=== PATIENT | male | born 1955 | race Caucasian/White ===

== ENCOUNTER → 2016-10-23 | Outpatient (CLI) | payer OTHER ==
--- NOTE | 2016-10-23 15:15 | US ---
EXAMINATION TYPE: US abdomen limited DATE OF EXAM: 10/23/2016 COMPARISON: NONE CLINICAL HISTORY: K45.8 abdominal hernia. Abd distention seen within RLQ when patient was looking in the mirror. No injury, does not enlarge in size, not painful. Assess for hernia at location of: RLQ No obvious defect seen within abdominal sheath to indicate a hernia with or without valsalva. IMPRESSION: NO EVIDENCE OF ABDOMINAL VENTRAL HERNIA. Real-time scanning was performed by the forge heater utilizing Valsalva and additional dynamic maneuve rs to assess for hernia. Images of the contralateral side were also acquired for direct comparison.
== END | disposition home or self-care (01) ==
LOC: RADUSWWP 13:50
PROVIDERS: ATTEND Family Medicine
DX: K46.9 Unspecified abdominal hernia without obstruction or gangrene (principal)
CPT/HCPCS: 76705

== ENCOUNTER 2022-08-09 09:28 | Emergency (ER) | payer OTHER ==
[2022-08-09 09:37] VITALS: RESP 20
--- NOTE | 2022-08-09 09:46 | ED ---
General Adult HPI - General Chief complaint: Upper Respiratory Infection Stated complaint: Chest Congestion Time Seen by Provider: 08/09/22 09:45 Source: patient Mode of arrival: ambulatory Limitations: no limitations - History of Present Illness Initial comments: 66-year-old male with past history of hypertension, hyperlipidemia who presents emergency department with upper respiratory symptoms. States that for the past 3 days he has had increased cough with clear sputum production. His grandson and multiple coworkers are sick. He admits to chills without recorded fevers. He was up all night last night coughing which caused him to have severe anxiety. He does not have any chest pain. Admits nausea without vomiting. Had some diarrhea yesterday. He is using his grandson's nebulizer without any improvement in his symptoms. Denies smoking history. No calf pain or swelling. No cardiac history. No other alleviating, precipitating or modifying factors - Related Data Previous Rx's Medication Instructions Recorded ALPRAZolam [Xanax] 0.25 mg PO Q8HR PRN 3 Days #9 tab 08/09/22 Albuterol Inhaler [Ventolin Hfa 1 - 2 puff INHALATION Q4H #1 each 08/09/22 Inhaler] Azithromycin [Zithromax Z Pack] 1 tab PO DIRECTED #6 tab 08/09/22 predniSONE [Deltasone] 20 mg PO BID #10 tab 08/09/22 Allergies Allergy/AdvReac Type Severity Reaction Status Date / Time No Known Allergies Allergy Verified 08/09/22 09:37 Review of Systems ROS Statement: Those systems with pertinent positive or pertinent negative responses have been documented in the HPI. ROS Other: All systems not noted in ROS Statement are negative. Past Medical History Past Medical History: Hyperlipidemia, Hypertension, Osteoarthritis (OA) Past Surgical History: Orthopedic Surgery Past Psychological History: No Psychological Hx Reported Smoking Status: Former smoker Past Alcohol Use History: None Reported Past Drug Use History: None Reported General Exam Limitations: no limitations General appearance: alert, in no apparent distress Head exam: Present: atraumatic, normocephalic, normal inspection Eye exam: Present: normal appearance, PERRL, EOMI. Absent: scleral icterus, conjunctival injection, periorbital swelling ENT exam: Present: normal exam, mucous membranes moist Neck exam: Present: normal inspection. Absent: tenderness, meningismus, lymphadenopathy Respiratory exam: Present: wheezes, decreased breath sounds. Absent: respiratory distress, rales, rhonchi, stridor Cardiovascular Exam: Present: regular rate, normal rhythm, normal heart sounds. Absent: systolic murmur, diastolic murmur, rubs, gallop, clicks GI/Abdominal exam: Present: soft, normal bowel sounds. Absent: distended, tenderness, guarding, rebound, rigid Extremities exam: Present: normal inspection, full ROM, normal capillary refill. Absent: tenderness, pedal edema, joint swelling, calf tenderness Back exam: Present: normal inspection Neurological exam: Present: alert, oriented X3, CN II-XII intact Psychiatric exam: Present: normal affect, normal mood Skin exam: Present: warm, dry, intact, normal color. Absent: rash Course Vital Signs 08/09/22 08/09/22 08/09/22 09:31 12:15 12:22 Temperature 99.2 F Pulse Rate 99 72 72 Respiratory 20 Rate Blood Pressure 164/92 O2 Sat by Pulse 97 Oximetry 08/09/22 12:34 Temperature 98.8 F Pulse Rate 70 Respiratory 20 Rate Blood Pressure 158/80 O2 Sat by Pulse 97 Oximetry Medical Decision Making - Medical Decision Making Was pt. sent in by a medical professional or institution (, PA, ICE PLANT OPERATOR, urgent care, hospital, or assisted...) When possible be specific @ -No Did you speak to anyone other than the patient for history (EMS, parent, family, police, friend...)? What history was obtained from this source @ -No Did you review nursing and triage notes (agree or disagree)? Why? @ -I reviewed and agree with nursing and triage notes Were old charts reviewed (outside hosp., previous admission, EMS record, old EKG, old radiological studies, urgent care reports/EKG's, assisted records)? Report findings @ -No previous records reviewed Differential Diagnosis (chest pain, altered mental status, abdominal pain women, abdominal pain men, vaginal bleeding, weakness, fever, dyspnea, syncope, headache, dizziness, GI bleed, back pain, seizure, CVA, palpatations, mental health, musculoskeletal)? @ -asthma exacerbation, copd, pulmonary fibrosis, uri EKG interpreted by me (3pts min.). @ -No X-rays interpreted by me (1pt min.). @ -Yes CT interpreted by me (1pt min.). @ -None done U/S interpreted by me (1pt. min.). @ -None done What testing was considered but not performed or refused? (CT, X-rays, U/S, labs)? Why? @ -None What meds were considered but not given or refused? Why? @ -None Did you discuss the management of the patient with other professionals (professionals i.e. Dr., PA, ICE PLANT OPERATOR, lab, RT, psych nurse, social media community manager, real estate lawyer, teacher, wildlife conservation officer, patient case coordinator)? Give summary @ -No Was smoking cessation discussed for >3mins.? @ -No Was critical care preformed (if so, how long)? @ -No Were there social determinants of health that impacted care today? How? (Homelessness, low income, unemployed, alcoholism, drug addiction, t ransportation, low edu. Level, literacy, decrease access to med. care, long term, rehab)? @ -No Was there de-escalation of care discussed even if they declined (Discuss DNR or withdrawal of care, Hospice)? DNR status @ -No What co-morbidities impacted this encounter? (DM, HTN, Smoking, COPD, CAD, Cancer, CVA, ARF, Chemo, Hep., AIDS, mental health diagnosis, sleep apnea, morbid obesity)? @ -None Was patient admitted / discharged? Hospital course, mention meds given and route, prescriptions, significant lab abnormalities, going to OR and other pertinent info. @ -On arrival he is placed into room 3. A thorough history and physical exam was performed. Patient is diffusely wheezy. He is swabbed for influenza, cold and RSV all of which are negative. Chest x-ray demonstrates no acute process. Results are discussed patient. He is eager to leave. I do discuss performing a breathing treatment for which she is agreeable. He was also given 60 mg prednisone. He is discharged home on azithromycin, prednisone and an inhaler. He is requesting something for anxiety. I did recommend cold and cough syrup however patient refused and wants something for anxiety. I discussed very limited use of the medication with him. He is given a few tablets however discuss that if he is having worsening breathing he needs to be evaluated instead of taking the medication. Patient understood this. He is felt as doctor in 2-4 days however needs to return in 48 hours of his symptoms are improved. Patient's was discharged in stable condition Undiagnosed new problem with uncertain prognosis? @ -Yes Drug Therapy requiring intensive monitoring for toxicity (Heparin, Nitro, Insulin, Cardizem)? @ -No Were any procedures done? @ -No Diagnosis/symptom? @ -acute resp insuff, acute bronchospasm Acute, or Chronic, or Acute on Chronic? @ -acute Uncomplicated (without systemic symptoms) or Complicated (systemic symptoms)? @ -complicated Side effects of treatment? @ -No Exacerbation, Progression, or Severe Exacerbation? @ -No Poses a threat to life or bodily function? How? (Chest pain, [place], [place], pneumonia, PE, COPD, DKA, ARF, appy, cholecystitis, CVA, Diverticulitis, Homicidal, Suicidal, threat to staff... and all critical care pts) @ -yes - Lab Data Lab Results 08/09/22 Range/Units 10:32 Influenza Type A (PCR) Not Detected (Not Detectd) Influenza Type B (PCR) Not Detected (Not Detectd) RSV (PCR) Not Detected (Not Detectd) SARS-CoV-2 (PCR) Not Detected (Not Detectd) Disposition Clinical Impression: Bronchospasm Disposition: HOME SELF-CARE Condition: Stable Instructions (If sedation given, give patient instructions): Upper Respiratory Infection (ED) Additional Instructions: Start using the inhaler every 4 hours. Start taking the prednisone tomorrow. Take the azithromycin today. Use the anxiety medication only if absolutely needed. I prefer you use your inhaler Prescriptions: predniSONE [Deltasone] 20 mg PO BID #10 tab Albuterol Inhaler [Ventolin Hfa Inhaler] 1 - 2 puff INHALATION Q4H #1 each ALPRAZolam [Xanax] 0.25 mg PO Q8HR PRN 3 Days #9 tab PRN Reason: Anxiety Azithromycin [Zithromax Z Pack] 1 tab PO DIRECTED #6 tab Is patient prescribed a controlled substance at d/c from ED?: No Referrals: Bennie Szymanski MD [Primary Care Provider] - 1-2 days Time of Disposition: 12:27
--- NOTE | 2022-08-09 11:33 | XR ---
EXAMINATION TYPE: XR chest 2V DATE OF EXAM: 08/09/2022 COMPARISON: None INDICATION: Cough, shortness of breath TECHNIQUE: Frontal and lateral views of the chest are obtained. FINDINGS: The heart size is normal. The pulmonary vasculature is normal. The lungs are clear. IMPRESSION: 1. No acute pulmonary process.
[2022-08-09] MEDS ORDERED: IPRATROPIUM-ALBUTEROL 3 ML NEB INHALATION STA (11:51)
[2022-08-09] MEDS ORDERED: predniSONE 20 MG TAB PO STA (11:52)
[2022-08-09 12:34] VITALS: BP 158/80; PULSE 70; TEMP 98.8
== END 2022-08-09 12:34 | disposition home or self-care (01) ==
LOC: EC 09:28
DX: J98.01 Acute bronchospasm (principal); I10 Essential (primary) hypertension; Z20.822 Contact with and (suspected) exposure to COVID-19; Z87.891 Personal history of nicotine dependence
CPT/HCPCS: 94640; 87636; 71046; 99283; J7512